=== PATIENT | male | born 1990 | race Caucasian/White ===

== ENCOUNTER 2019-02-16 07:33 | Emergency (ER) | payer OTHER ==
[~2019-02-16] VITALS: Ht 152.4 cm; Wt 102.0 kg
[2019-02-16 07:38] VITALS: BP 123/71; PULSE 78; RESP 18; Ht 152.4 cm; Wt 102.0 kg
[2019-02-16] MEDS ORDERED: IBUP-1542 PO (10:51)
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
== END 2019-02-16 11:03 | disposition home or self-care (01) ==
LOC: FTE 07:33
DX: S02.2XXA Fracture of nasal bones, initial encounter for closed fracture (principal); S09.90XA Unspecified injury of head, initial encounter; I10 Essential (primary) hypertension; F17.210 Nicotine dependence, cigarettes, uncomplicated; W18.30XA Fall on same level, unspecified, initial encounter; Y92.091 Bathroom in other non-institutional residence as the place of occurrence of the external cause
CPT/HCPCS: 70450; 70486; Z7502